=== PATIENT | male | born 1990 | race Caucasian/White ===

== ENCOUNTER 2019-05-10 18:46 | Emergency (ER) | payer MEDICAID ==
[~2019-05-10] VITALS: Ht 165.1 cm; Wt 105.0 kg
[2019-05-10 19:03] VITALS: BP 189/123
== END 2019-05-11 01:21 | disposition left against medical advice (07) ==
LOC: ER 18:46
DX: R53.1 Weakness (principal); Z53.21 Procedure and treatment not carried out due to patient leaving prior to being seen by health care provider

== ENCOUNTER 2022-08-27 06:04 | Inpatient (IN) | payer MEDICAID, OTHER ==
[~2022-08-27] VITALS: Ht 182.9 cm; Wt 126.1 kg
[2022-08-27] MEDS ORDERED: ASPIRIN 81MG TABLET PO ONE (06:45)
[2022-08-27 07:56] LABS: BASOPHILS % 0.7 % (0.0-2.0); EOSINOPHILS % 5.1 % (0.0-5.0); HEMATOCRIT. 38.9 % (42.0-52.0); HEMOGLOBIN. 13.3 g/dL (14.0-18.0); LYMPHOCYTES % 13.9 % (20.0-50.0); MEAN CORPUSCULAR HEMOGLOBIN 30.6 pg (28.0-32.0); MEAN CORPUSCULAR VOLUME 89.9 fL (80.0-94.0); MEAN PLATELET VOLUME 7.4 fl (7.4-10.4); MONOCYTES % 8.6 % (2.0-8.0); NEUTROPHILS % 71.7 % (40.0-76.0); PLATELET 265 x1000/uL (130-400); RED BLOOD CELL COUNT 4.33 mill/uL (4.7-6.1); RED CELL DISTRIBUTION WIDTH 13.1 % (11.6-14.6)
[2022-08-27 08:03] LABS: CHLORIDE 108 mEq/L (98-107)
[2022-08-27 08:09] LABS: PROTHROMBIN TIME 10.9 sec (9.6-11.0)
[2022-08-27 12:00] VITALS: BP 199/87
[2022-08-27 13:30] VITALS: BP 199/87
[2022-08-27 16:00] VITALS: BP 153/91
[2022-08-27] MEDS ORDERED: ACETAMINOPHEN 325MG TABLET PO PRN (17:45)
[2022-08-27] MEDS ORDERED: ONDANSETRON HCL 4MG/2ML INJ IV PRN (17:45)
[2022-08-27] MEDS: LOSARTAN POTASSIUM 100 MG TABLET PO SCH (18:52)
[2022-08-27 20:00] VITALS: BP 130/89
[2022-08-27 21:54] LABS: CLARITY URINE CLEAR (CLEAR); COLOR URINE YELLOW (YELLOW); KETONES URINE NEGATIVE (NEGATIVE); LEUKOCYTE ESTERASE URINE NEGATIVE (NEGATIVE); NITRITE URINE NEGATIVE (NEGATIVE); OCCULT BLOOD URINE TRACE (NEGATIVE); PROTEIN URINE 1+ (NEGATIVE); SPECIFIC GRAVITY URINE 1.022 (1.005-1.030); UROBILINOGEN URINE 0.2 E.U./dL (0.2-1.0)
[2022-08-27 22:17] LABS: *AMPHETAMINES SCREEN URINE PRESUMTIVE POSITIVE (NEGATIVE); *BARBITURATES SCREEN URINE NEGATIVE (NEGATIVE); *BENZODIAZEPINES SCREEN URINE NEGATIVE (NEGATIVE); *COCAINE SCREEN URINE NEGATIVE (NEGATIVE); CANNABINOID URINE SCREEN PRESUMTIVE POSITIVE (NEGATIVE); METHADONE URINE SCREEN NEGATIVE (NEGATIVE); OPIATES URINE SCREEN NEGATIVE (NEGATIVE); PHENCYCLIDINE URINE SCREEN NEGATIVE (NEGATIVE)
[2022-08-28] VITALS (7 sets, daily range): BP systolic 126–187; BP diastolic 74–105
[2022-08-28] MEDS: HYDRALAZINE HCL 100MG TABLET PO SCH ×3 (08:32→20:23)
[2022-08-28] MEDS: LOSARTAN POTASSIUM 100 MG TABLET PO SCH (08:32)
[2022-08-28] MEDS ORDERED: ASPIRIN 81MG TABLET PO SCH (09:00)
[2022-08-28] MEDS ORDERED: HYDR100T26 MT (11:17)
[2022-08-28] MEDS ORDERED: LOSA100T32 MT (11:17)
[2022-08-28] MEDS: CLONIDINE 0.1MG TABLET PO PRN ×2 (13:09→20:23)
[2022-08-28] MEDS ORDERED: AMLO10TA80 MT ×2 (17:30)
[2022-08-28] MEDS ORDERED: NIFE-32 MT (17:42)
== END 2022-08-28 21:00 | disposition home or self-care (01) | DRG 199 ==
LOC: ER 06:04 → 7WST 10:51 → EDBEDREQTM 10:53 → EDBEDREQ 10:53 → ENRESERV 12:46
PROVIDERS: ADMIT Internal Medicine; ATTEND Internal Medicine
DX: I16.0 Hypertensive urgency (principal); E66.9 Obesity, unspecified; I10 Essential (primary) hypertension; F15.90 Other stimulant use, unspecified, uncomplicated; R74.01 Elevation of levels of liver transaminase levels; R07.89 Other chest pain; Z68.37 Body mass index [BMI] 37.0-37.9, adult
CPT/HCPCS: 36415; 71045; 80053; 80305; 81003; 84484; 85025; 93005; 93306; 99285

== ENCOUNTER 2023-03-07 10:50 | Inpatient (IN) | payer MEDICAID, OTHER ==
[~2023-03-07] VITALS: Ht 165.1 cm; Wt 133.8 kg
[~2023-03-07 10:50] MED LIST: HYDR100T26 MT; LOSA100T32 MT; NIFE-32 MT
[2023-03-07 12:48] LABS: BASOPHILS % 0.8 % (0.0-2.0); EOSINOPHILS % 3.8 % (0.0-5.0); HEMATOCRIT. 41.5 % (42.0-52.0); HEMOGLOBIN. 14.1 g/dL (14.0-18.0); LYMPHOCYTES % 9.9 % (20.0-50.0); MEAN CORPUSCULAR HEMOGLOBIN 30.6 pg (28.0-32.0); MEAN CORPUSCULAR VOLUME 89.9 fL (80.0-94.0); MEAN PLATELET VOLUME 7.5 fl (7.4-10.4); MONOCYTES % 9.2 % (2.0-8.0); NEUTROPHILS % 76.3 % (40.0-76.0); PLATELET 299 x1000/uL (130-400); RED BLOOD CELL COUNT 4.61 mill/uL (4.7-6.1); RED CELL DISTRIBUTION WIDTH 13.9 % (11.6-14.6)
[2023-03-07 12:52] LABS: CHLORIDE 104 mEq/L (98-107)
[2023-03-07 16:00] VITALS: BP 133/63
[2023-03-07] MEDS ORDERED: ONDANSETRON HCL 4MG/2ML INJ IV PRN (18:00)
[2023-03-07] MEDS ORDERED: ENOXAPARIN 150MG/ML SYR SUBCUT NR (18:15)
[2023-03-07] MEDS: ACETAMINOPHEN 325MG TABLET PO PRN (19:15)
[2023-03-07 20:00] VITALS: BP 132/77
[2023-03-07] MEDS: FUROSEMIDE 100MG/10ML VIAL IVP SCH (21:34)
[2023-03-07 22:27] LABS: PROTHROMBIN TIME 11.2 sec (9.6-11.0)
[2023-03-07 22:49] LABS: HEPATITIS B SURFACE ANTIGEN NEGATIVE
[2023-03-08] VITALS: BP 145/93
[2023-03-08 04:00] VITALS: BP 140/82
[2023-03-08 06:26] LABS: EOSINOPHILS % 3.7 % (0.0-5.0); HEMATOCRIT. 43.1 % (42.0-52.0); HEMOGLOBIN. 14.8 g/dL (14.0-18.0); LYMPHOCYTES % 13.1 % (20.0-50.0); MEAN CORPUSCULAR VOLUME 90.4 fL (80.0-94.0); MEAN PLATELET VOLUME 7.8 fl (7.4-10.4); MONOCYTES % 13.4 % (2.0-8.0); NEUTROPHILS % 68.8 % (40.0-76.0); PLATELET 277 x1000/uL (130-400); RED BLOOD CELL COUNT 4.77 mill/uL (4.7-6.1)
[2023-03-08 07:44] LABS: CHLORIDE 102 mEq/L (98-107)
[2023-03-08 08:00] VITALS: BP 149/92
[2023-03-08] MEDS: FUROSEMIDE 100MG/10ML VIAL IVP SCH ×2 (08:25→16:04)
[2023-03-08] MEDS: ENOXAPARIN 150MG/ML SYR SUBCUT SCH ×2 (08:25→20:55)
[2023-03-08] MEDS: POTASSIUM CHLORIDE 20MEQ TABLET SR PO SCH (08:25)
[2023-03-08 12:00] VITALS: BP 121/74
[2023-03-08] MEDS: ACETAMINOPHEN 325MG TABLET PO PRN (12:28)
[2023-03-08] MEDS ORDERED: METOLAZONE 2.5MG TABLET PO NR (15:15)
[2023-03-08 16:36] VITALS: BP 146/62
[2023-03-08 20:00] VITALS: BP 129/65
[2023-03-09] VITALS: BP 116/74
[2023-03-09 04:00] VITALS: BP 122/69
[2023-03-09 08:00] VITALS: BP 128/85
[2023-03-09] MEDS: FUROSEMIDE 100MG/10ML VIAL IVP SCH ×2 (08:18→16:34)
[2023-03-09] MEDS: POTASSIUM CHLORIDE 20MEQ TABLET SR PO SCH (08:20)
[2023-03-09] MEDS ORDERED: ENOXAPARIN 40MG/0.4ML SYR SUBCUT SCH (09:00)
[2023-03-09 12:00] VITALS: BP 132/88
[2023-03-09] MEDS ORDERED: METOLAZONE 2.5MG TABLET PO NR (12:45)
[2023-03-09 15:59] VITALS: BP 112/59
[2023-03-09 16:45] VITALS: BP 112/59
== END 2023-03-09 17:15 | disposition home or self-care (01) | DRG 194 ==
LOC: ER 10:50 → 7WST 14:06 → EDBEDREQ 14:09
PROVIDERS: ADMIT Internal Medicine; ATTEND Internal Medicine
DX: I11.0 Hypertensive heart disease with heart failure (principal); E66.01 Morbid (severe) obesity due to excess calories; I50.33 Acute on chronic diastolic (congestive) heart failure; E87.6 Hypokalemia; G47.33 Obstructive sleep apnea (adult) (pediatric); J45.909 Unspecified asthma, uncomplicated; R74.01 Elevation of levels of liver transaminase levels; Z68.42 Body mass index [BMI] 45.0-49.9, adult
CPT/HCPCS: 36415; 71045; 80048; 80053; 80305; 83036; 83880; 84484; 85025; 86803; 87340; 93306; 93970; 99285; C1893; J1650; J1940

== ENCOUNTER 2023-04-09 13:57 | Emergency (ER) | payer MEDICAID ==
[~2023-04-09] VITALS: Ht 165.1 cm; Wt 135.0 kg
[~2023-04-09 13:57] MED LIST changes: -LOSA100T32 MT; +LOSA100T33 MT
[2023-04-09 16:02] VITALS: BP 157/91
[2023-04-09] MEDS ORDERED: KETOROLAC 60MG/2ML VIAL IM STA (16:02)
[2023-04-09 16:21] LABS: HEMATOCRIT. 47.5 % (42.0-52.0); HEMOGLOBIN. 15.9 g/dL (14.0-18.0); MEAN CORPUSCULAR HEMOGLOBIN 29.7 pg (28.0-32.0); MEAN CORPUSCULAR VOLUME 88.8 fL (80.0-94.0); MEAN PLATELET VOLUME 7.6 fl (7.4-10.4); PLATELET 310 x1000/uL (130-400); RED BLOOD CELL COUNT 5.35 mill/uL (4.7-6.1); RED CELL DISTRIBUTION WIDTH 13.9 % (11.6-14.6)
[2023-04-09 16:27] LABS: CHLORIDE 100 mEq/L (98-107)
[2023-04-09 16:36] LABS: CREATINE KINASE 215 IU/L (39-308)
[2023-04-09 16:49] LABS: PLATELET ESTIMATE NORMAL
[2023-04-09 19:01] LABS: CLARITY URINE CLEAR (CLEAR); COLOR URINE YELLOW (YELLOW); KETONES URINE NEGATIVE (NEGATIVE); LEUKOCYTE ESTERASE URINE NEGATIVE (NEGATIVE); NITRITE URINE NEGATIVE (NEGATIVE); OCCULT BLOOD URINE NEGATIVE (NEGATIVE); PROTEIN URINE NEGATIVE (NEGATIVE); SPECIFIC GRAVITY URINE 1.009 (1.005-1.030); UROBILINOGEN URINE 0.2 E.U./dL (0.2-1.0)
[2023-04-09 19:12] LABS: *AMPHETAMINES SCREEN URINE NEGATIVE (NEGATIVE); *BARBITURATES SCREEN URINE NEGATIVE (NEGATIVE); *BENZODIAZEPINES SCREEN URINE NEGATIVE (NEGATIVE); *COCAINE SCREEN URINE NEGATIVE (NEGATIVE); CANNABINOID URINE SCREEN NEGATIVE (NEGATIVE); METHADONE URINE SCREEN NEGATIVE (NEGATIVE); OPIATES URINE SCREEN NEGATIVE (NEGATIVE); PHENCYCLIDINE URINE SCREEN NEGATIVE (NEGATIVE)
== END 2023-04-09 20:35 | disposition home or self-care (01) ==
LOC: ER 13:57
DX: R74.01 Elevation of levels of liver transaminase levels (principal); I10 Essential (primary) hypertension; J45.909 Unspecified asthma, uncomplicated; Z20.822 Contact with and (suspected) exposure to COVID-19
CPT/HCPCS: 36415; 71045; 80053; 80305; 81003; 82550; 83690; 83735; 85025; 87426; 87804; 96372; 99284; C9803; J1885; Z7610